=== PATIENT | male | born 1990 | race Caucasian/White ===

== ENCOUNTER 2019-09-19 20:59 | Emergency (ER) | payer OTHER ==
[~2019-09-19] VITALS: Ht 182.9 cm; Wt 148.3 kg
--- NOTE | 2019-09-19 21:01 | NUR ---
PT BIBA AND TAKEN TO BED #4
[2019-09-19 21:04] VITALS: BP 152/93
--- NOTE | 2019-09-19 21:05 | NUR ---
DR. PONCE AT BEDSIDE EXAMINING PT
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
--- NOTE | 2019-09-19 21:07 | NUR ---
KLEVER PONCE AT BEDSIDE EVALUATING PT.
[2019-09-19] MEDS ORDERED: KETOROLAC 30 MG/ML VIAL IM ONE (21:10)
[2019-09-19] MEDS ORDERED: LORazepam 2 MG/ML VIAL IM ONE (21:10)
--- NOTE | 2019-09-19 22:07 | NUR ---
PT RESTING IN BED IN POSITION OF COMFORT, BED LOW AND LOCKED, 2 SIDERAILS UP, VSS, WILL CONTINUE TO MONITOR.
[2019-09-19] MEDS ORDERED: MORPHINE SULFATE 10 MG/ML VIAL IM ONE (22:10)
[2019-09-19] MEDS ORDERED: ONDANSETRON 4 MG ODT PO ONE (23:10)
[2019-09-19] MEDS ORDERED: MORPHINE SULFATE 4 MG/ML SYR IM ONE (23:10)
--- NOTE | 2019-09-19 23:24 | NUR ---
PT RESTING IN BED IN POSITION OF COMFORT, BED LOW AND LOCKED, 2 SIDERAILS UP, VSS, WILL CONTINUE TO MONITOR.
--- NOTE | 2019-09-20 00:05 | NUR ---
AT BEDSIDE SPEAKING WITH PT
[2019-09-20] MEDS ORDERED: MORPHINE SULFATE 4 MG/ML SYR IM ONE (00:10)
--- NOTE | 2019-09-20 00:11 | NUR ---
PT REMAINS UNABLE TO TRANSITION INTO WHEELCHAIR AND REQUESTING TO BE ADMITTED FOR PAIN CONTROL. DR CATALAN SPOKE WITH PATIENT. PT IS AGREEING TO RECEVIED 1 MORE INJECTION OF MORPHINE AND THEN D/C.
--- NOTE | 2019-09-20 00:50 | NUR ---
PT STATES HAS SOME PAIN RELIEF AFTER LAST SHOT OF MORPHINE
--- NOTE | 2019-09-20 01:15 | NUR ---
Patient discharged with v/s stable. Written and verbal after care instructions given and explained. Patient alert, oriented and verbalized understanding of instructions. Ambulatory with steady gait. All questions addressed prior to discharge. ID band removed. Patient advised to follow up with PMD. Rx of NORCO/MEDROL PACK given. Patient educated on indication of medication including possible reaction and side effects. Opportunity to ask questions provided and answered.
[2019-09-20 01:17] VITALS: BP 122/76
== END 2019-09-20 01:15 | disposition home or self-care (01) ==
LOC: MED 20:59
DX: M54.5 Low back pain (principal)
CPT/HCPCS: 96372; 99284; J1885; J2060; J2270; Q0162

== ENCOUNTER 2020-11-11 12:42 | Emergency (ER) | payer MEDICAID, OTHER ==
[~2020-11-11] VITALS: Ht 182.9 cm; Wt 140.2 kg
[2020-11-11 12:50] VITALS: BP 139/89
--- NOTE | 2020-11-11 13:00 | NUR ---
pt ambulated to bed 04.
--- NOTE | 2020-11-11 13:27 | NUR ---
30 y/o male c/o Headache x3days/ BIB self from home s/p sun exposure >5 hours on . Pt noted headache to top of head worsening today; 8/10, pressure non-radiating. Patient also reports pressure to bilateral eyes. Reports fever taken with Tylenol yesterday. Denies any trauma or injury, nausea, vomiting, diarrhea, blurry vision, dizziness. Took NORCO yesterday which alleviated the pain. Bilat Eyes 5mm, PERRL. Lung sounds clear. Abd soft non tender. PMH/Sx/Meds: Denies NKA
--- NOTE | 2020-11-11 13:58 | NUR ---
LATOSHA PRO AT BEDSIDE EXAMINING PT
[2020-11-11] MEDS ORDERED: KETOROLAC 30 MG/ML VIAL IVP ONE (14:00)
[2020-11-11] MEDS ORDERED: NACL 0.9% 1,000 ML IV ONE (14:00)
--- NOTE | 2020-11-11 14:50 | NUR ---
BLOOD LABS, CHRISTINE AND NOVEL SAMPLES COLLECTED AND SENT TO LAB WITH CARMENCITA HANNON
[2020-11-11 15:00] LABS: BASOPHILS # (AUTO) 0.1 K/uL (0.00-0.22); EOSINOPHILS # (AUTO) 0.3 K/uL (0-0.4); EOSINOPHILS % (AUTO) 3.3 % (0.0-4.0); HEMOGLOBIN 15.3 g/dL (12.0-18.0); LYMPHOCYTES # (AUTO) 2.3 K/uL (2.0-11.5); LYMPHOCYTES % (AUTO) 29.9 % (20.5-51.1); MEAN CORPUSCULAR HEMOGLOBIN 30 pg (27-31); MEAN CORPUSCULAR HGB CONC 34 g/dL (33-37); MEAN CORPUSCULAR VOLUME 88.6 fL (80-94); MONOCYTES # (AUTO) 0.7 K/uL (0.8-1.0); MONOCYTES % (AUTO) 8.6 % (1.7-9.3); NEUTROPHILS # (AUTO) 4.5 K/uL (1.8-7.7); NEUTROPHILS % (AUTO) 57.2 % (42.2-75.2); PLATELET COUNT (AUTO) 190 K/uL (140-450); RED BLOOD CELL COUNT(AUTO) 5.07 MIL/uL (4.20-6.10); RED CELL DISTRIBUTION WIDTH 13.1 % (11.6-13.7); WHITE BLOOD COUNT (AUTO) 7.8 K/uL (4.8-10.8)
[2020-11-11 15:15] LABS: ALBUMIN 4.1 g/dL (3.4-5.0); ANION GAP 11.7 (8-16); CARBON DIOXIDE 29.9 mmol/L (21-32); CREATININE 0.9 mg/dL (0.6-1.3); POTASSIUM 3.6 mmol/L (3.5-5.1); TOTAL BILIRUBIN 0.7 mg/dL (0.0-1.0)
[2020-11-11] MEDS ORDERED: IBUP-1842 PO (15:28)
[2020-11-11 15:43] VITALS: BP 139/89
== END 2020-11-11 15:43 | disposition home or self-care (01) ==
LOC: MED 12:42
DX: R51.9 Headache, unspecified (principal); Z20.822 Contact with and (suspected) exposure to COVID-19; R50.9 Fever, unspecified
CPT/HCPCS: 80053; 85025; 87426; 96361; 96374; 99283; J1885; J7030; U0003

== ENCOUNTER 2021-01-30 19:25 | Emergency (ER) | payer MEDICAID, OTHER ==
[~2021-01-30] VITALS: Ht 182.9 cm; Wt 138.8 kg
[~2021-01-30 19:25] MED LIST: IBUP-1842 PO
[2021-01-30 19:39] VITALS: BP 157/94
--- NOTE | 2021-01-30 23:23 | NUR ---
SEEN AND EXAMINED BY KLEVER
--- NOTE | 2021-01-31 04:00 | NUR ---
ALL RESULTS BACK AND NOTED BY ERMD, AND FOR D/C
[2021-01-31 04:10] VITALS: BP 122/89
--- NOTE | 2021-01-31 04:10 | NUR ---
Patient discharged with v/s stable. Written and verbal after care instructions given and explained. Patient verbalized understanding. Ambulatory with steady gait. All questions addressed prior to discharge. Advised to follow up with PMD.
== END 2021-01-31 04:10 | disposition home or self-care (01) ==
LOC: MED 19:25
DX: R07.9 Chest pain, unspecified (principal); M79.602 Pain in left arm; I10 Essential (primary) hypertension
CPT/HCPCS: 36415; 71045; 83880; 84484; 93005; 99285; Q0092